=== PATIENT | female | born 1950 | race Native Hawaiian/Other Pacific Islander ===

== ENCOUNTER 2017-04-24 11:16 | Emergency (ER) | payer SELFPAY ==
[~2017-04-24] VITALS: Ht 147.3 cm; Wt 55.0 kg
[2017-04-24 11:21] VITALS: BP 237/98; PULSE 68; RESP 14; TEMP 98.4; O2SAT 99
[2017-04-24] MEDS ORDERED: CARV12.52 PO (11:35)
[2017-04-24] MEDS ORDERED: CELE1CAP8 PO (11:35)
[2017-04-24] MEDS ORDERED: EMPA1TAB24 PO (11:35)
[2017-04-24] MEDS ORDERED: LEVO75TA3 PO (11:35)
[2017-04-24] MEDS ORDERED: TEMA30CA PO (11:35)
[2017-04-24] MEDS ORDERED: MONT10TA4 PO (11:35)
--- NOTE | 2017-04-24 11:50 | PD ---
HPI Chief Complaint: Hypertension Time Seen by Provider: 11:49 Travel History International Travel<30 days: No Contact w/Intl Traveler<30days: No Traveled to known affect area: No History of Present Illness HPI 66-year-old female with PMH of HTN, DM, hypothyroid presents to the ED for evaluation of 1 week history of intermittent frontal headaches with accompanied photophobia, dizziness, nausea. The patient is Japanese and does not speak Indonesian. She requests that her fzbnusbh-fa-hgd at bedside act as her sign language interpreter. The patient states that she is currently asymptomatic. The patient denies chest pain, palpitations, shortness of breath, abdominal pain, nausea, vomiting, dysuria, facial droop, difficulties with speech, unilateral weakness. Her ujwjwfup-qy-hnn states that although the patient has been experiencing these symptoms for approximately one week she did not mention it until yesterday. Her ajfryhnb-qb-orc states that she began to monitor her rpdhxq-xm-fqe's blood pressures and noted that they were near 200/100 and spite of compliance with medications. The patient is followed by Dr. Ksenia Cooper. [facility] Past Medical History Arthritis: Yes Asthma: Yes Diabetes: Yes Patient Takes Glucophage: No Hypertension: Yes Thyroid Disease: Yes ?: Not Menopausal: Yes Social History Alcohol Use: No Tobacco Use: No Substance Use: No Allergies-Medications (Allergen,Severity, Reaction): Coded Allergies: No Known Allergies (Verified Allergy, Unknown, 04/24/17) Reported Meds & Prescriptions Reported Meds & Active Scripts Active Hydrochlorothiazide 25 Mg Tab 25 Mg PO BID Reported Celecoxib 200 Mg Cap 200 Mg PO DAILY Levothyroxine (Levothyroxine Sodium) 75 Mcg Tab 75 Mcg PO DAILY Montelukast (Montelukast Sodium) 10 Mg Tab 10 Mg PO HS Synjardy Xr (Empagliflozin-Metformin) 5-1,000 Mg Tab 1 Tab PO AC LUNCH Temazepam 30 Mg Cap 30 Mg PO HS PRN Carvedilol 12.5 Mg Tab 12.5 Mg PO BID Review of Systems Except as stated in HPI: all other systems reviewed are Neg Physical Exam Narrative GENERAL: Well-nourished, well-developed petite Japanese female in no acute distress. SKIN: Focused skin assessment warm/dry. HEAD: Normocephalic. EYES: No scleral icterus. No injection or drainage. PERRLA. EOMI. NECK: Supple, trachea midline. No JVD or lymphadenopathy. CARDIOVASCULAR: Regular rate and rhythm without murmurs, gallops, or rubs. RESPIRATORY: Breath sounds clear and equal bilaterally. No accessory muscle use. GASTROINTESTINAL: Abdomen soft, non-tender, nondistended. Active bowel sounds. MUSCULOSKELETAL: No cyanosis, or edema. Moves the extremities spontaneously. NEUROLOGICAL: Awake and alert. Cranial nerves II through XII intact. Motor and sensory grossly within normal limits. Five out of 5 muscle strength in all muscle groups. Normal speech. BACK: Nontender without obvious deformity. No CVA tenderness. Data Data Last Documented VS Vital Signs Date Time Temp Pulse Resp B/P (MAP) Pulse Ox O2 Delivery O2 Flow Rate FiO2 04/24/17 14:03 56 16 205/85 (125) 100 Room Air 04/24/17 11:21 98.4 Orders Orders Electrocardiogram (04/24/17 11:49) Complete Blood Count With Diff (04/24/17 11:49) Comprehensive Metabolic Panel (04/24/17 11:49) Ckmb (Isoenzyme) Profile (04/24/17 11:49) Troponin I (04/24/17 11:49) Act Partial Throm Time (Ptt) (04/24/17 11:49) Prothrombin Time / Inr (Pt) (04/24/17 11:49) Urinalysis - C+S If Indicated (04/24/17 11:49) Chest, Single Ap (04/24/17 11:49) Ct Brain W/O Iv Contrast(Rout) (04/24/17 11:49) Ecg Monitoring (04/24/17 11:49) Iv Access Insert/Monitor (04/24/17 11:49) Oximetry (04/24/17 11:49) Sodium Chloride 0.9% Flush (Ns Flush) (04/24/17 12:00) Blood Glucose (04/24/17 12:01) CKMB (04/24/17 12:00) CKMB% (04/24/17 12:00) Potassium, Serum (K) (04/24/17 13:31) Hydrochlorothiazide (Hydrodiuril) (04/24/17 13:45) Ed Discharge Order (04/24/17 14:47) Labs Laboratory Tests Test 04/24/17 12:00 04/24/17 12:29 04/24/17 14:00 White Blood Count 7.2 TH/MM3 Red Blood Count 5.42 MIL/MM3 Hemoglobin 14.7 GM/DL Hematocrit 45.1 % Mean Corpuscular Volume 83.3 FL Mean Corpuscular Hemoglobin 27.2 PG Mean Corpuscular Hemoglobin Concent 32.7 % Red Cell Distribution Width 14.5 % Platelet Count 157 TH/MM3 Mean Platelet Volume 9.0 FL Neutrophils (%) (Auto) 58.0 % Lymphocytes (%) (Auto) 30.4 % Monocytes (%) (Auto) 6.9 % Eosinophils (%) (Auto) 3.9 % Basophils (%) (Auto) 0.8 % Neutrophils # (Auto) 4.2 TH/MM3 Lymphocytes # (Auto) 2.2 TH/MM3 Monocytes # (Auto) 0.5 TH/MM3 Eosinophils # (Auto) 0.3 TH/MM3 Basophils # (Auto) 0.1 TH/MM3 CBC Comment DIFF FINAL Differential Comment Blood Urea Nitrogen 10 MG/DL Creatinine 0.57 MG/DL Random Glucose 79 MG/DL Total Protein 8.7 GM/DL Albumin 4.0 GM/DL Calcium Level 9.3 MG/DL Alkaline Phosphatase 86 U/L Aspartate Amino Transf (AST/SGOT) 36 U/L Alanine Aminotransferase (ALT/SGPT) 25 U/L Total Bilirubin 0.7 MG/DL Sodium Level 137 MEQ/L Potassium Level 5.4 MEQ/L 4.2 MEQ/L Chloride Level 106 MEQ/L Carbon Dioxide Level 24.9 MEQ/L Anion Gap 6 MEQ/L Estimat Glomerular Filtration Rate 105 ML/MIN Total Creatine Kinase 187 U/L Creatine Kinase MB 1.6 NG/ML Troponin I LESS THAN 0.02 NG/ML Prothrombin Time 10.5 SEC Prothromb Time International Ratio 1.0 RATIO Activated Partial Thromboplast Time 25.5 SEC Urine Color LIGHT-YELLOW Urine Turbidity CLEAR Urine pH 7.5 Urine Specific [place] 1.005 Urine Protein NEG mg/dL Urine Glucose (UA) 1000 mg/dL Urine Ketones NEG mg/dL Urine Occult Blood NEG Urine Nitrite NEG Urine Bilirubin NEG Urine Urobilinogen LESS THAN 2.0 MG/DL Urine Leukocyte Esterase MOD Urine RBC LESS THAN 1 /hpf Urine WBC 2 /hpf Urine Squamous Epithelial Cells 1 /hpf Urine Bacteria OCC /hpf Microscopic Urinalysis Comment CULT NOT INDICATED MDM Medical Decision Making Medical Screen Exam Complete: Yes Emergency Medical Condition: Yes Differential Diagnosis hypertension versus hypertensive urgency versus hyperglycemia versus ICH versus ACS versus other Narrative Course 66-year-old female with PMH of HTN, DM, hypothyroid presents to the ED for evaluation of 1 week history of intermittent frontal headaches with accompanied photophobia, dizziness, nausea. The patient is Japanese and does not speak Indonesian. She requests that her wfzefnin-tb-evg at bedside act as her sign language interpreter. The patient states that she is currently asymptomatic. The patient is followed by Dr. Ksenia Cooper. BP 237/98 on presentation. On physical exam this is a petit Japanese female in no acute distress. No focal neuro deficits. Chest CTA B. Abdomen soft and nontender. No lower extremity edema. EKG rate 68, sinus rhythm. DC interval 137, QRS 92, QTC 379 ms. Normal axis. No acute ST changes. Reviewed by Dr. Hatch. CXR: No acute disease per radiology read. Cardiac enzymes negative 1 INR: 1.1 UA: no culture indicated CBC & BMP Diagram 04/24/17 12:00 Total Protein 8.7 H, Albumin 4.0, Calcium Level 9.3, Alkaline Phosphatase 86, Aspartate Amino Transf (AST/SGOT) 36, Alanine Aminotransferase (ALT/SGPT) 25, Total Bilirubin 0.7 Potassium 4.2 on recheck. The patient was administered 25 mg HCTZ. BP trending downward. Shes is provided a prescription for HCTZ 25mg BID, instructed to follow up with her PCP. The patient and her daughter in law indicated understanding of the instructions and are agreeable to the care plan. The patient is table and discharged home. Diagnosis Primary Impression: Hypertension Qualified Codes: I10 - Essential (primary) hypertension Referrals: Primary Care Physician Patient Instructions: General Instructions, Hypertension (ED) Additional Instructions: Rest, hydrate. Resume at home medications as previously prescribed. Take the second dose of HCTZ with your evening medications. Follow-up with your primary care tomorrow as discussed. Return to the ED for worsening symptoms or any urgent or emergent medical condition. Med/Other Pt SpecificInfo: Prescription(s) given Scripts Hydrochlorothiazide (Hydrochlorothiazide) 25 Mg Tab 25 MG PO BID, #30 TAB Prov: Gee Hatch MD 04/24/17 Disposition: DISCHARGE HOME Condition: Stable Sarah Pettit Apr 24, 2017 11:50
[2017-04-24] MEDS ORDERED: SODIUM CHLORIDE 0.9% FLUSH 10 ML FLUSH IVF PRN (12:00)
--- NOTE | 2017-04-24 12:12 | RADRPT ---
EXAM DATE/TIME: 04/24/2017 12:03 [facility] COMPARISON: No previous studies available for comparison. INDICATIONS : Cephalgia, dizziness and nausea today. RADIATION DOSE: 34.71 CTDIvol (mGy) MEDICAL HISTORY : Hypertension. thyroid disease, diabetes SURGICAL HISTORY : None. ENCOUNTER: Initial ACUITY: 1 day PAIN SCALE: 8/10 LOCATION: Bilateral head TECHNIQUE: Multiple contiguous axial images were obtained of the head. Using automated exposure control and adj ustment of the mA and/or kV according to patient size, radiation dose was kept as low as reasonably a chievable to obtain optimal diagnostic quality images. DICOM format image data is available electro nically for review and comparison. FINDINGS: CEREBRUM: The ventricles and cortical sulci are widened. No evidence of midline shift, mass lesion, hemorrhage or acute infarction. No extra-axial fluid collections are seen. POSTERIOR FOSSA: The cerebellum and brainstem are intact. The 4th ventricle is midline. The cerebellopontine angle i s unremarkable. EXTRACRANIAL: The visualized portion of the orbits is intact. There is mild mucosal thickening at the maxillary sin uses. SKULL: The calvaria is intact. No evidence of skull fracture. CONCLUSION: No acute intracranial abnormality seen. Ky Betancourt MD on April 24, 2017 at 12:08 Board Certified Radiologist. This report was verified electronically.
[2017-04-24 12:33] LABS: AST (GOT) 36 U/L (15-37); BICARBONATE 24.9 MEQ/L (21.0-32.0); BLOOD UREA NITROGEN 10 MG/DL (7-18); CALCIUM 9.3 MG/DL (8.5-10.1); CHLORIDE 106 MEQ/L (98-107); CREATININE 0.57 MG/DL (0.50-1.00); GLOMERULAR FILTRATION RATE 105 ML/MIN (>89); GLUCOSE,RANDOM 79 MG/DL (74-106); SODIUM (NA) 137 MEQ/L (136-145)
[2017-04-24 12:36] LABS: ALKALINE PHOSPHATASE 86 U/L (45-117); ALT (GPT) 25 U/L (10-53); TOTAL BILIRUBIN ADULT 0.7 MG/DL (0.2-1.0); TOTAL PROTEIN 8.7 GM/DL (6.4-8.2); TROPONIN I LESS THAN 0.02 NG/ML (0.02-0.05)
[2017-04-24 12:37] VITALS: BP 213/137; PULSE 60; RESP 15; O2SAT 100
[2017-04-24 12:39] LABS: AUTOMATED NEUTROPHIL # 4.2 TH/MM3 (1.8-7.7); BASOPHIL # 0.1 TH/MM3 (0-0.2); BASOPHIL % 0.8 % (0.0-2.0); EOSINOPHIL # 0.3 TH/MM3 (0-0.4); EOSINOPHIL % 3.9 % (0.0-4.0); HEMATOCRIT 45.1 % (35.0-46.0); HEMOGLOBIN 14.7 GM/DL (11.6-15.3); LYMPH % 30.4 % (9.0-44.0); LYMPHOCYTE # 2.2 TH/MM3 (1.0-4.8); MEAN CELL VOLUME 83.3 FL (80.0-100.0); MEAN CORPUSCULAR HEMOGLOBIN 27.2 PG (27.0-34.0); MEAN CORPUSCULAR HGB CONC 32.7 % (32.0-36.0); MONO % 6.9 % (0.0-8.0); MONOCYTE # 0.5 TH/MM3 (0-0.9); PLATELET COUNT 157 TH/MM3 (150-450); RED BLOOD COUNT 5.42 MIL/MM3 (4.00-5.30); RED CELL DISTRIBUTION WIDTH 14.5 % (11.6-17.2); WHITE BLOOD COUNT 7.2 TH/MM3 (4.0-11.0)
--- NOTE | 2017-04-24 12:43 | RADRPT ---
EXAM DATE/TIME: 04/24/2017 12:08 [facility] COMPARISON: No previous studies available for comparison. INDICATIONS : High blood pressure. MEDICAL HISTORY : Hypertension. Diabetes, Hypertension. SURGICAL HISTORY : None. ENCOUNTER: Initial ACUITY: 1 day PAIN SCORE: 0/10 LOCATION: Bilateral chest FINDINGS: A single view of the chest demonstrates the lungs to be symmetrically aerated without evidence of mas s, infiltrate or effusion. The cardiomediastinal contours are unremarkable. Osseous structures are intact. CONCLUSION: No acute disease. Ky Betancourt MD on April 24, 2017 at 12:42 Board Certified Radiologist. This report was verified electronically.
[2017-04-24 12:52] LABS: BACTERIA, URINE OCC /hpf; BILIRUBIN, URINE NEG (NEG); BLOOD, URINE NEG (NEG); GLUCOSE,URINE 1000 mg/dL (NEG); KETONE, URINE NEG (NEG); NITRITE,URINE NEG (NEG); PH, URINE 7.5 (5.0-8.5); SQUAMOUS EPITHELIAL CELL URINE 1 /hpf (0-5); URINE COLOR LIGHT-YELLOW (YELLW/STRAW); URINE LEUKOCYTE ESTERASE MOD (NEG)
[2017-04-24 12:58] LABS: PROTHROMBIN TIME - PATIENT 10.5 SEC (9.8-11.6)
[2017-04-24] MEDS ORDERED: HYDR25TA5 PO (13:35)
[2017-04-24] MEDS ORDERED: HYDROCHLOROTHIAZIDE 25 MG TAB PO ONE (13:45)
[2017-04-24 14:03] VITALS: BP 205/85; PULSE 56; RESP 16; O2SAT 100
--- NOTE | 2017-04-25 15:27 | EKG ---
Date Performed: 04/24/2017 Time Performed: 11:34:40 PTAGE: 66 years EKG: Sinus rhythm WITH MARKED SINUS ARRHYTHMIA NONSPECIFIC T-WAVE ABNORMALITY CANNOT RULE OUT ISCHEMIA Clinical correl ation is recommended BORDERLINE ECG NO PREVIOUS TRACING DOCTOR: Yury Naidu Interpretating Date/Time 04/25/2017 15:27:13
== END 2017-04-24 15:28 | disposition home or self-care (01) ==
LOC: NEPC 11:16
DX: I10 Essential (primary) hypertension (principal); R94.31 Abnormal electrocardiogram [ECG] [EKG]; E03.9 Hypothyroidism, unspecified; E11.9 Type 2 diabetes mellitus without complications; J45.909 Unspecified asthma, uncomplicated
CPT/HCPCS: 70450; 71045; 80053; 81001; 82550; 82552; 84132; 84484; 85025; 85610; 85730; 93005

== ENCOUNTER 2017-10-25 23:05 | Inpatient (IN) ==
[2017-10-25] MEDS ORDERED: MethylPREDNISolone Sod Succinate Inj 125 MG/2 ML Vial IV.PUSH ONE (23:29)
--- NOTE | 2017-10-25 23:39 | ED ---
HPI General Chief complaint: Respiratory Symptoms Stated complaint: Diff breathing Time Seen by Provider: 10/25/17 23:29 Source: family Limitations: no limitations History of Present Illness HPI narrative: The patient is a 67 year old female who presents to the [facility] emergency department with a history of congestion, cough, subjective fever that began yesterday. Today the patient began to have symptoms of shortness of breath that it gradually worsened throughout the evening. The patient's daughter reports that yesterday she started back on Brio and albuterol as nebulizer treatments. She reports that she has been given this in the past when she had an upper respiratory infection. She last used these medicines 4-5 months ago. The patient denies having any chest pain. She denies any history of coronary artery disease or congestive heart failure. She reports that she has not been diagnosed with asthma or COPD in the past. She denies any prior history of DVT or PE. The patient arrives tachypneic with an O2 saturation of 74% on room air. The patient was initially placed on a nonrebreather mask and then switched over to BiPAP. Patient denies having any nausea, vomiting, or diarrhea. The patient denies having any new urinary review of systems otherwise, the patient denies having any neck pain, abdominal pain, or neurologic symptoms. Related Data Allergies Allergy/AdvReac Type Severity Reaction Status Date / Time No Known Allergies Allergy Unknown Uncoded 04/24/17 11:24 Review of Systems ROS: all other systems reviewed are negative (Except for that which was mentioned in the HPI.) Constitutional Denies fever(s) Eyes Denies change in vision ENT Denies headache(s) and Denies nasal congestion Cardiovascular Denies chest pain Respiratory Denies dyspnea Gastrointestinal Denies abdominal pain Genitourinary Denies difficulty voiding Musculoskeletal Denies myalgias Integumentary/Breasts Denies rash Neurologic Denies headache(s) Psychiatric Denies depression Endocrine Denies polyuria Hematologic/Lymphatic Denies easy bruising [facility] Medical History Medical History Allergic rhinitis (Acute) Diabetes (Acute) Hypertension (Acute) Hypothyroidism (Acute) Reactive airway disease (Acute) Surgical History Surgical History No pertinent past surgical history (Acute) Social History Social History Substance History: No History of Abuse Smoking Status: Never smoker How Often Do You Have a Drink Containing Alcohol: Never Recent Travel in [facility] within the Last 8 Weeks: No Recent Out of Country Travel within the Last 8 Weeks: No Exam Const General: cooperative and acute distress moderate and respiratory Nutritional Appearance: well nourished Orientation: alert, awake and oriented x3 HENMT Head: normocephalic and atraumatic Nose: no nasal discharge and no epistaxis Mouth: moist mucous membranes Throat: posterior oropharynx normal and uvula midline Eyes Sclera: normal sclerae Pupils: PERRL Neck Neck: no meningeal signs, trachea midline and no JVD Resp Effort & Inspection: respiratory distress, retractions, tachypneic and uses accessory muscles Auscultation: wheezes and other (Decreased breath sounds in bilateral lung bases. Poor air movement. The patient has conversational dyspnea. No rhonchi or crackles are audible initially.) Cardio Rate: regular rate Rhythm: regular rhythm Heart Sounds: no gallops, no murmurs and no rubs GI Inspection: non-distended Palpation: soft, no hepatosplenomegaly and nontender Auscultation: normal bowel sounds Back/Spine/Pelvis Back: no CVA tenderness Skin General: dry skin (warm) Neuro General: alert, awake and oriented x3 Cranial Nerves: other (Grossly nonfocal.) Speech: speech normal Motor: no movement abnormalities noted Extrem General: normal to inspection (No calf tenderness on palpation. 2+ pulses in all 4 extremities.), no clubbing, no cyanosis and no edema Psych Mood: congruent mood Affect: normal affect Judgment: judgment good Course Reevaluation(s) Reevaluation #1: The patient on reevaluation is improved. The patient is tolerating BiPAP well. The patient is saturating 94% on BiPAP. Consultations Consultation #1: The patient's case including history, pertinent physical examination findings, and laboratory studies were discussed with Dr. Lieberman It was agreed that the patient would be admitted to the [facility] hospitalist service. Time: 01:06 Initial Documented Vital Signs Pulse Rate 71 10/25/17 23:15 Respiratory Rate 21 10/25/17 23:15 Pulse Oximetry 97 10/25/17 23:15 Last Documented Vital Signs Temperature 99.5 F 10/25/17 23:18 Pulse Rate 70 10/26/17 00:58 Respiratory Rate 21 10/25/17 23:45 Blood Pressure 191/81 H 10/26/17 00:58 Pulse Oximetry 98 10/26/17 00:58 Medical Decision Making MDM Narrative Medical decision making narrative: During the course of the patient's emergency department visit, the patient's history, examination, and differential diagnosis were reviewed with the patient. The patient was placed on a nuclear monitoring technician with oximetry and frequent blood pressure monitoring. The patient had IV access obtained and blood work sent for analysis. Diagnostic evaluation was started regarding the patient's shortness of breath and hypoxemia on room air. The patient was initially provided DuoNeb x3, Solu-Medrol 125 mg IV. Blood cultures x2 were collected. The patient was started on Rocephin 1 g IV, Zithromax 500 IV. The patient's diagnostic evaluation is remarkable for a white count of 11, platelets of 247, neutrophils 74.4, hemoglobin within normal limits at 14.3, PT PTT within normal limits, d-dimer is 0.47 decreasing likelihood of pulmonary embolism. Chemistry is remarkable for a troponin I of less than 0.02, total protein 9.6, glucose 127, GFR of 62, BNP is 110. Blood gas on BiPAP at 12/6, 50 % reveals a pH is 7.141, PO2 of 63, PCO2 42, bicarb 26. The patient's results were discussed with the patient, including the plan of care. I explained that further testing and/ or monitoring is indicated based on the patient's history, examination, and/ or laboratory findings. Therefore, I recommended admission for additional evaluation. The patient expressed understanding and was agreeable with this plan. The patient was admitted to the hospital in guarded condition and sent to a bed under the care of the [facility] hospitalist service. Medical Screen Exam Complete: Yes Emergency Medical Condition: Yes Differential Diagnosis Differential Diagnosis: Pulmonary embolism, versus congestive heart failure, versus reactive airway exacerbation, versus pneumonia, versus pneumothorax Medical Records Medical records reviewed: Yes I reviewed the patient's medical records. Lab Data Lab results reviewed: Yes I reviewed the patient's lab results. Result diagrams: 10/25/17 23:25 10/25/17 23:25 Lab Results 10/25/17 10/25/17 10/25/17 Range/Units 23:25 23:25 23:25 WBC 11.0 (4.0-11.0) th/mm3 RBC 5.19 (4.00-5.30) mil/mm3 Hgb 14.3 (11.6-15.3) gm/dL Hct 42.5 (35.0-46.0) % MCV 81.9 (80.0-100.0) fL MCH 27.6 (27.0-34.0) pg MCHC 33.6 (32.0-36.0) % RDW 14.3 (11.6-17.2) % Plt Count 247 (150-450) th/mm3 MPV 9.4 (7.0-11.0) fL Neut % (Auto) 74.4 H (16.0-70.0) % Lymph % (Auto) 15.6 (9.0-44.0) % [place] % (Auto) 6.9 (0.0-8.0) % Eos % (Auto) 2.7 (0.0-4.0) % Baso % (Auto) 0.4 (0.0-2.0) % Neut # (Auto) 8.2 H (1.8-7.7) th/mm3 Lymph # (Auto) 1.7 (1.0-4.8) th/mm3 [place] # (Auto) 0.8 (0.0-0.9) th/mm3 Eos # (Auto) 0.3 (0.0-0.4) th/mm3 Baso # (Auto) 0.0 (0.0-0.2) th/mm3 WBC Differential . Differential Comment Auto diff final PT (9.8-11.6) sec INR Ratio APTT (24.3-30.1) sec D-Dimer Quant (PE/DVT) (0.00-0.50) mg/L FEU Puncture Site Patient Temperature O2 Saturation (90-100) % ABG pH (7.380-7.420) ABG pCO2 (38-42) mmHg ABG pO2 (61-120) mmHg ABG HCO3 (22-26) mmol/L ABG O2 Content (12.0-20.0) Vol % ABG Base Excess (-2-2) mmol/L ABG Methemoglobin (0-2) % [place] Test Hemoglobin (12.0-16.0) G/DL Carboxyhemoglobin (0-4) % O2 Delivery Device Vent Setting Inspired O2 % Critical Value Sodium 140 (136-145) meq/L Potassium 3.8 (3.5-5.1) meq/L Chloride 104 (98-107) meq/L Carbon Dioxide 25.7 (21.0-32.0) meq/L Anion Gap 10 (5-15) meq/L BUN 14 (7-18) mg/dL Creatinine 0.90 (0.50-1.00) mg/dL Estimated GFR 62 L (>89) mL/min Random Glucose 127 H (74-106) mg/dL Calcium 8.9 (8.5-10.1) mg/dL Magnesium 2.1 (1.5-2.5) mg/dL Total Bilirubin 0.4 (0.2-1.0) mg/dL AST 27 (15-37) U/L ALT 32 (10-53) U/L Alkaline Phosphatase 93 (45-117) U/L Total Creatine Kinase 150 (26-192) U/L CK-MB (CK-2) 1.7 (0.5-3.6) ng/mL Troponin I Less than 0.02 L (0.02-0.05) ng/mL B-Natriuretic Peptide 110 H (0-100) pg/mL Total Protein 9.6 H (6.4-8.2) g/dL Albumin 4.7 (3.4-5.0) g/dL Lipase 201 (73-393) U/L 10/25/17 10/26/17 Range/Units 23:25 00:30 WBC (4.0-11.0) th/mm3 RBC (4.00-5.30) mil/mm3 Hgb (11.6-15.3) gm/dL Hct (35.0-46.0) % MCV (80.0-100.0) fL MCH (27.0-34.0) pg MCHC (32.0-36.0) % RDW (11.6-17.2) % Plt Count (150-450) th/mm3 MPV (7.0-11.0) fL Neut % (Auto) (16.0-70.0) % Lymph % (Auto) (9.0-44.0) % [place] % (Auto) (0.0-8.0) % Eos % (Auto) (0.0-4.0) % Baso % (Auto) (0.0-2.0) % Neut # (Auto) (1.8-7.7) th/mm3 Lymph # (Auto) (1.0-4.8) th/mm3 [place] # (Auto) (0.0-0.9) th/mm3 Eos # (Auto) (0.0-0.4) th/mm3 Baso # (Auto) (0.0-0.2) th/mm3 WBC Differential Differential Comment PT 10.0 (9.8-11.6) sec INR 1.0 Ratio APTT 25.9 (24.3-30.1) sec D-Dimer Quant (PE/DVT) 0.47 (0.00-0.50) mg/L FEU Puncture Site Right radial Patient Temperature 98.6 O2 Saturation 90 (90-100) % ABG pH 7.41 (7.380-7.420) ABG pCO2 42 (38-42) mmHg ABG pO2 63 (61-120) mmHg ABG HCO3 26 (22-26) mmol/L ABG O2 Content 15.8 (12.0-20.0) Vol % ABG Base Excess 1.8 (-2-2) mmol/L ABG Methemoglobin 0.6 (0-2) % [place] Test Present Hemoglobin 12.4 (12.0-16.0) G/DL Carboxyhemoglobin 0.8 (0-4) % O2 Delivery Device Bipap Vent Setting Ipap=12 epap=6 Inspired O2 50 % Critical Value No Sodium (136-145) meq/L Potassium (3.5-5.1) meq/L Chloride (98-107) meq/L Carbon Dioxide (21.0-32.0) meq/L Anion Gap (5-15) meq/L BUN (7-18) mg/dL Creatinine (0.50-1.00) mg/dL Estimated GFR (>89) mL/min Random Glucose (74-106) mg/dL Calcium (8.5-10.1) mg/dL Magnesium (1.5-2.5) mg/dL Total Bilirubin (0.2-1.0) mg/dL AST (15-37) U/L ALT (10-53) U/L Alkaline Phosphatase (45-117) U/L Total Creatine Kinase (26-192) U/L CK-MB (CK-2) (0.5-3.6) ng/mL Troponin I (0.02-0.05) ng/mL B-Natriuretic Peptide (0-100) pg/mL Total Protein (6.4-8.2) g/dL Albumin (3.4-5.0) g/dL Lipase (73-393) U/L Imaging Data Radiologist's impression: Chest X-Ray 10/25/17 23:29 CONCLUSION: No evidence of acute cardiopulmonary disease. ECG Data Attestation: I personally reviewed and interpreted this ECG as follows: Interpretation: The patient had an EKG done on arrival. The patient's EKG shows a sinus rhythm heart rate of 82, QRS duration is 90 ms, QTC [address] segment elevation, nonspecific ST-T wave abnormalities are noted, wavy baseline noted which could be infecting interpretation. Discharge Plan Discharge Disposition Patient Disposition: 30 Still Patient Discharge Details Diagnosis: Acute respiratory failure with hypoxemia, Exacerbation of reactive airway disease Physicians Team ED Provider: Malka Ghotra Primary Care Provider: Nidhi Cooper Status ED Status: With Doctor
[2017-10-25 23:54] LABS: Baso % (Auto) 0.4 % (0.0-2.0); Eos # (Auto) 0.3 th/mm3 (0.0-0.4); Eos % (Auto) 2.7 % (0.0-4.0); Hematocrit 42.5 % (35.0-46.0); Hemoglobin 14.3 gm/dL (11.6-15.3); Lymph # (Auto) 1.7 th/mm3 (1.0-4.8); Lymph % (Auto) 15.6 % (9.0-44.0); Mean Corpuscular HGB Conc 33.6 % (32.0-36.0); Mean Corpuscular Hemoglobin 27.6 pg (27.0-34.0); Mean Corpuscular Volume 81.9 fL (80.0-100.0); Mean Platelet Volume 9.4 fL (7.0-11.0); Mono # (Auto) 0.8 th/mm3 (0.0-0.9); Mono % (Auto) 6.9 % (0.0-8.0); Neut # (Auto) 8.2 th/mm3 (1.8-7.7); Neut % (Auto) 74.4 % (16.0-70.0); Platelet Count 247 th/mm3 (150-450); Red Blood Count 5.19 mil/mm3 (4.00-5.30); Red Cell Distribution Width 14.3 % (11.6-17.2)
--- NOTE | 2017-10-25 23:58 | XR ---
EXAM DATE: 10/25/2017 11:45 PM EDT AGE/SEX: 67 years / Female INDICATIONS: Shortness of breath. CLINICAL DATA: This is the patient's initial encounter. Patient reports that signs and symptoms have been present for 1 day and indicates a pain score of 0/10. MEDICAL/SURGICAL HISTORY: Hypertension. Diabetes. None. COMPARISON: [facility] [place], CHEST SINGLE AP, 04/24/2017. . FINDINGS: A single AP view of the chest demonstrates the lungs to be symmetrically aerated without evidence of mass, infiltrate or effusion. The cardiomediastinal contours are unremarkable. Osseous structures a re intact. CONCLUSION: No evidence of acute cardiopulmonary disease. Electronically signed by: Ky Lima MD 10/25/2017 11:56 PM EDT
[2017-10-26 00:10] LABS: Activated Partial Thrombo Time 25.9 sec (24.3-30.1)
[2017-10-26 00:14] LABS: D-Dimer 0.47 mg/L FEU (0.00-0.50)
[2017-10-26 00:24] LABS: Alanine Aminotransferase 32 U/L (10-53); Alkaline Phosphatase 93 U/L (45-117); Creatine Kinase 150 U/L (26-192); Total Protein 9.6 g/dL (6.4-8.2)
[2017-10-26 00:25] LABS: Albumin 4.7 g/dL (3.4-5.0); Anion Gap 10 meq/L (5-15); Aspartate Aminotransferase 27 U/L (15-37); Blood Urea Nitrogen 14 mg/dL (7-18); Calcium 8.9 mg/dL (8.5-10.1); Carbon Dioxide 25.7 meq/L (21.0-32.0); Chloride 104 meq/L (98-107); Glomerular Filtration Rate 62 mL/min (>89); Glucose,Random 127 mg/dL (74-106); Lipase 201 U/L (73-393); Magnesium 2.1 mg/dL (1.5-2.5); Potassium 3.8 meq/L (3.5-5.1); Sodium 140 meq/L (136-145)
[2017-10-26 00:36] LABS: Creatine Kinase MB 1.7 ng/mL (0.5-3.6)
[2017-10-26] MEDS ORDERED: Azithromycin Inj 500 MG in Sodium Chlor 0.9% Inj 250 ML IV.SIG ONE (00:43)
[2017-10-26 00:46] LABS: ABG Base Excess 1.8 mmol/L (-2-2); ABG PCO2 42 mmHg (38-42); ABG PO2 63 mmHg (61-120)
[2017-10-26] MEDS ORDERED: Bisacodyl 10 MG Supp RECTAL PRN (02:24)
[2017-10-26] MEDS ORDERED: MethylPREDNISolone Sod Succinate Inj 125 MG/2 ML Vial IV.PUSH SCH (03:00)
[2017-10-26] MEDS: Enoxaparin Inj 40 MG/0.4 ML Syringe SQ SCH (03:29)
[2017-10-26 05:31] LABS: ABG Base Excess 0.2 mmol/L (-2-2); ABG PCO2 43 mmHg (38-42); ABG PO2 69 mmHG (61-120)
[2017-10-26] MEDS: MethylPREDNISolone Sod Succinate Inj 125 MG/2 ML Vial IV.PUSH SCH ×3 (05:40→17:30)
[2017-10-26] MEDS: Senna/Docusate Sodium 8.6/50 MG Tablet PO SCH ×2 (08:45→20:08)
[2017-10-26] MEDS: levoFLOXacin 750 MG Tablet PO SCH (08:45)
--- NOTE | 2017-10-26 09:07 | P.HP ---
<Pamela Martin W - Last Filed: 10/26/17 17:41> History of Present Illness Primary Care Physician: Nidhi Cooper Chief Complaint: Shortness of breath, cough and congestion times 1 day History of Present Illness: This a 67-year-old female patient with a past medical history which includes diabetes mellitus type 2, hypothyroidism, hyperlipidemia, benign hypertension, asthma, seasonal allergies and postmenopausal osteoporosis. Patient presented to the ER last night due to congestion, cough, subjective fever that began . Patient reports that she began to have symptoms of shortness of breath that gradually worsened throughout the evening. The patient's daughter reports that yesterday she started back on Brio and albuterol as nebulizer treatments. She reports that she has been given this in the past when she had an upper respiratory infection. She last used these medicines 4-5 months ago. Patient lives with her son daughter- in -law and two grandchildren. Patient's grandson recently has an URI. Per ER documentation the patient was tachypneic with an O2 saturation of 74% on room air when she arrived to the ER last night. The patient was initially placed on a nonrebreather mask and then switched over to BiPAP. Patient denies having any chest pain, nausea, vomiting, diarrhea, constipation or chills. Patient also did denies recent travel, prolonged sedentary periods or lower extremity edema. Chest X-Ray 10/25/17 23:29 reviewed and reveals No evidence of acute cardiopulmonary disease. Past medical history Diabetes mellitus type 2 Hypothyroidism Benign hypertension Hyperlipidemia Asthma Seasonal allergies Postmenopausal osteoporosis Past surgical history Patient denies prior surgical intervention. Social history Patient denies EtOH use tobacco use or illicit drug use Family medical history reviewed and noncontributory - Diagnosis (1) Acute respiratory failure with hypoxemia (2) Exacerbation of reactive airway disease Inpatient Certification: I certify that the inpatient services were ordered in accordance with Medicare regulations governing the order. This includes certification that hospital inpatient services are reasonable and necessary and in the case of services not specified as inpatient-only under 42 CFR 419.22(n), that they are appropriately provided as inpatient services in accordance to with the 2-midnight benchmark under 43 CFR 412.3(e) Estimated Total Length of Stay (Days): 3 Plans for Post Hospital Care: Not yet determined Review of Systems All other systems reviewed negative except as stated in HPI [facility] - History History Provided By: Family Member - Medical History Medical History: Medical History (Last Updated 10/25/17 @ 23:36 by Malka Ghotra MD) Allergic rhinitis Diabetes Hypertension Hypothyroidism Reactive airway disease - Surgical History Surgical History: Surgical History (Last Updated 10/25/17 @ 23:24 by Jewel Marshall Jr, RN) No pertinent past surgical history - Tobacco History Second Hand Smoke Exposure: No Smoking Status: Never smoker - Alcohol History How Often Do You Have a Drink Containing Alcohol: Never - Substance Use History Substance History: No History of Abuse - Travel History Recent Travel in the [place] Within the Last 8 Weeks: No Recent Travel Out of the Country Within the Last 8 Weeks: No - Immunization History Tetanus Immunization: Unable to Assess Hx Influenza Vaccine This Season: Unable to Assess Medications and Allergies Allergies Allergy/AdvReac Type Severity Reaction Status Date / Time No Known Allergies Allergy Unknown Uncoded 04/24/17 11:24 Home Medications Medication Instructions Recorded Confirmed Type aspirin [Aspirin Low Dose] 81 mg PO DAILY 10/26/17 10/26/17 History atorvastatin 10 mg PO DAILY 10/26/17 10/26/17 History carvedilol 12.5 mg PO BID 10/26/17 10/26/17 History celecoxib 200 mg PO DAILY 10/26/17 10/26/17 History clonazepam 1 mg PO DAILY 10/26/17 10/26/17 History diltiazem HCl 180 mg PO DAILY 10/26/17 10/26/17 History empagliflozin-metformin [Synjardy] 1 tab PO BID 10/26/17 10/26/17 History fluticasone-vilanterol [Breo 10/26/17 History Ellipta] hydrochlorothiazide 25 mg PO QAM 10/26/17 10/26/17 History levothyroxine 75 mcg PO DAILY 10/26/17 10/26/17 History montelukast 10 mg PO QPM 10/26/17 10/26/17 History Active Medications: Active Medications Al Hydroxide/Mg Hydroxide (Milk Of Magnjocelin Liq) 30 ml PO Q12H PRN PRN Reason: Mild Constipation Albuterol (Duoneb Neb (Nakia)) 1 ampul NEB Q6HR NEB [place] Last Admin: 10/26/17 03:37 Dose: 1 ampul Bisacodyl (Dulcolax Supp) 10 mg RECTAL DAILY PRN PRN Reason: SEVERE CONSITIPATION Chlorhexidine Gluconate (Chlorhexidine 2% Cloth) 3 pack TOPICAL DAILY@0400 [facility] Stop: 11/01/17 03:59 Chlorhexidine Gluconate (Chlorhexidine 2% Cloth) 3 pack TOPICAL DAILY@0400 PRN PRN Reason: Extra cloth needed Stop: 11/01/17 03:59 Enoxaparin Sodium (Lovenox Inj) 40 mg SQ Q24H [facility] Last Admin: 10/26/17 03:29 Dose: 40 mg Lactulose (Lactulose Liq) 30 ml PO DAILY PRN PRN Reason: SEVERE CONSITIPATION Levofloxacin (Levaquin) 750 mg PO DAILY [facility] Last Admin: 10/26/17 08:45 Dose: 750 mg Methylprednisolone Sodium Succinate (Solumedrol Inj) 60 mg IV.PUSH Q6H [facility] Last Admin: 10/26/17 05:40 Dose: 60 mg Ondansetron HCl (Zofran Inj) 4 mg IV.PUSH Q6H PRN PRN Reason: NAUSEA OR VOMITING Senna/Docusate Sodium (Pamela-Colace) 1 tab PO BID [facility] Last Admin: 10/26/17 08:45 Dose: 1 tab Sennosides (Senokot) 17.2 mg PO Q12H PRN PRN Reason: Moderate Constipation Sodium Chloride (Ns Flush) 2 ml IV.FLUSH PRN PRN PRN Reason: FLUSH AFTER USING IV ACCESS Sodium Chloride (Ns Flush) 2 ml IV.FLUSH BID [facility] Last Admin: 10/26/17 08:45 Dose: 2 ml Exam Vital signs: Vital Signs 10/25/17 23:15 10/25/17 23:18 10/25/17 23:29 Temperature 99.5 F Pulse Rate 71 77 82 Respiratory Rate 21 32 H Blood Pressure 223/95 H Pulse Oximetry 97 78 L 10/25/17 23:30 10/25/17 23:45 10/26/17 00:01 Temperature Pulse Rate 72 71 72 Respiratory Rate 24 21 Blood Pressure 203/85 H Pulse Oximetry 100 10/26/17 00:30 10/26/17 00:58 10/26/17 01:27 Temperature Pulse Rate 71 70 68 Respiratory Rate 30 H Blood Pressure 196/83 H 191/81 H 177/76 H Pulse Oximetry 100 98 96 10/26/17 02:10 10/26/17 02:13 10/26/17 02:50 Temperature Pulse Rate 70 Respiratory Rate 20 Blood Pressure 151/70 H Pulse Oximetry 97 97 94 L 10/26/17 03:15 10/26/17 03:16 10/26/17 03:34 Temperature Pulse Rate 68 68 Respiratory Rate 28 H 20 Blood Pressure 157/73 H Pulse Oximetry 95 99 10/26/17 03:38 10/26/17 04:00 10/26/17 04:32 Temperature 97.9 F Pulse Rate 67 65 Respiratory Rate 28 H 22 Blood Pressure 197/77 H Pulse Oximetry 95 98 10/26/17 04:33 10/26/17 05:24 10/26/17 06:00 Temperature Pulse Rate 62 56 L Respiratory Rate 26 H 21 Blood Pressure Pulse Oximetry 95 96 97 10/26/17 06:01 Temperature Pulse Rate 55 L Respiratory Rate 22 Blood Pressure 145/63 H Pulse Oximetry 98 Intake & Output 10/25/17 10/26/17 10/26/17 18:59 06:59 18:59 Intake Total 350 / 350 Output Total 0 / 0 Balance 350 / 350 Weight 53.977 kg Intake: IV 350 / 350 Azithromycin Inj 500 MG In NS 250 / 250 Inj 250 ML @ 250 mls/hr IV.SIG ONCE ONE Rx#:[id number] Rocephin Inj 1,000 MG In NS Inj 100 / 100 100 ML @ 200 mls/hr IV.SIG ONCE ONE Rx#:[id number] Oral 0 / 0 Output: Urine 0 / 0 Other: # Bowel Movements 0 Weight On Admission 54 kg Narrative: GENERAL: This is a well-nourished, well-developed patient, in no apparent distress. CARDIOVASCULAR: Regular rate and rhythm RESPIRATORY: GASTROINTESTINAL: Abdomen soft, non-tender, nondistended. Normal active bowel sounds MUSCULOSKELETAL: Extremities without clubbing, cyanosis, or edema. NEURO: Alert & Oriented x4 to person, place, time, situation. Moves all ext x4 Results - Labs CBC & Chem 7: 10/25/17 23:25 10/25/17 23:25 Labs: Laboratory Results - last 24 hr 10/25/17 10/25/17 10/25/17 23:25 23:25 23:25 WBC 11.0 RBC 5.19 Hgb 14.3 Hct 42.5 MCV 81.9 MCH 27.6 MCHC 33.6 RDW 14.3 Plt Count 247 MPV 9.4 Neut % (Auto) 74.4 H Lymph % (Auto) 15.6 [place] % (Auto) 6.9 Eos % (Auto) 2.7 Baso % (Auto) 0.4 Neut # (Auto) 8.2 H Lymph # (Auto) 1.7 [place] # (Auto) 0.8 Eos # (Auto) 0.3 Baso # (Auto) 0.0 WBC Differential . Differential Comment Auto diff final PT INR APTT D-Dimer Quant (PE/DVT) Puncture Site Patient Temperature O2 Saturation ABG pH ABG pCO2 ABG pO2 ABG HCO3 ABG O2 Content ABG Base Excess ABG Methemoglobin [place] Test Hemoglobin Carboxyhemoglobin O2 Delivery Device Vent Setting Inspired O2 Critical Value Sodium 140 Potassium 3.8 Chloride 104 Carbon Dioxide 25.7 Anion Gap 10 BUN 14 Creatinine 0.90 Estimated GFR 62 L Random Glucose 127 H Calcium 8.9 Magnesium 2.1 Total Bilirubin 0.4 AST 27 ALT 32 Alkaline Phosphatase 93 Total Creatine Kinase 150 CK-MB (CK-2) 1.7 Troponin I Less than 0.02 L B-Natriuretic Peptide 110 H Total Protein 9.6 H Albumin 4.7 Lipase 201 Nasal Screen MRSA (PCR) 10/25/17 10/26/17 10/26/17 23:25 00:30 04:00 WBC RBC Hgb Hct MCV MCH MCHC RDW Plt Count MPV Neut % (Auto) Lymph % (Auto) [place] % (Auto) Eos % (Auto) Baso % (Auto) Neut # (Auto) Lymph # (Auto) [place] # (Auto) Eos # (Auto) Baso # (Auto) WBC Differential Differential Comment PT 10.0 INR 1.0 APTT 25.9 D-Dimer Quant (PE/DVT) 0.47 Puncture Site Right radial Patient Temperature 98.6 O2 Saturation 90 ABG pH 7.41 ABG pCO2 42 ABG pO2 63 ABG HCO3 26 ABG O2 Content 15.8 ABG Base Excess 1.8 ABG Methemoglobin 0.6 [place] Test Present Hemoglobin 12.4 Carboxyhemoglobin 0.8 O2 Delivery Device Bipap Vent Setting Ipap=12 epap=6 Inspired O2 50 Critical Value No Sodium Potassium Chloride Carbon Dioxide Anion Gap BUN Creatinine Estimated GFR Random Glucose Calcium Magnesium Total Bilirubin AST ALT Alkaline Phosphatase Total Creatine Kinase CK-MB (CK-2) Troponin I B-Natriuretic Peptide Total Protein Albumin Lipase Nasal Screen MRSA (PCR) Not detected 10/26/17 05:17 WBC RBC Hgb Hct MCV MCH MCHC RDW Plt Count MPV Neut % (Auto) Lymph % (Auto) Aiken % (Auto) Eos % (Auto) Baso % (Auto) Neut # (Auto) Lymph # (Auto) Aiken # (Auto) Eos # (Auto) Baso # (Auto) WBC Differential Differential Comment PT INR APTT D-Dimer Quant (PE/DVT) Puncture Site Right radial Patient Temperature 98.6 O2 Saturation 91 ABG pH 7.38 ABG pCO2 43 H ABG pO2 69 ABG HCO3 25 ABG O2 Content 15.8 ABG Base Excess 0.2 ABG Methemoglobin 1.6 [place] Test Present Hemoglobin 12.3 Carboxyhemoglobin 0.5 O2 Delivery Device Bipap Vent Setting [id number] Inspired O2 40 Critical Value No Sodium Potassium Chloride Carbon Dioxide Anion Gap BUN Creatinine Estimated GFR Random Glucose Calcium Magnesium Total Bilirubin AST ALT Alkaline Phosphatase Total Creatine Kinase CK-MB (CK-2) Troponin I B-Natriuretic Peptide Total Protein Albumin Lipase Nasal Screen MRSA (PCR) - Imaging Impressions Chest X-Ray 10/25/17 23:29 CONCLUSION: No evidence of acute cardiopulmonary disease. Caprini VTE Risk Assessment Caprini VTE Risk Assessment: No/Low Risk (score <= 1) Caprini Risk Assessment Model: Point Value = 1 Point Value = 2 Point Value = 3 Point Value = 5 Age 41-60 Minor surgery BMI > 25 kg/m2 Swollen legs Varicose veins or History of unexplained or recurrent spontaneous Oral contraceptives or hormone replacement Sepsis (< 1 month) Serious lung disease, including pneumonia (< 1 month) Abnormal pulmonary function Acute myocardial infarction Congestive heart failure (< 1 month) History of inflammatory bowel disease Medical patient at bed rest Age 61-74 Arthroscopic surgery Major open surgery (> 45 min) Laparoscopic surgery (> 45 min) Malignancy Confined to bed (> 72 hours) Immobilizing plaster cast Central venous access Age >= 75 History of VTE Family history of VTE Factor V Leiden Prothrombin [id number] Lupus anticoagulant Anticardiolipin antibodies Elevated serum homocysteine Heparin-induced thrombocytopenia Other congenital or acquired thrombophilia Stroke (< 1 month) Elective arthroplasty Hip, pelvis, or leg fracture Acute spinal cord injury (< 1 month) Prophylaxis Regimen: Total Risk Factor Score Risk Level Prophylaxis Regimen 0-1 Low Early ambulation 2 Moderate Order ONE of the following: *Sequential Compression Device (SCD) *Heparin 5000 units SQ BID 3-4 Higher Order ONE of the following medications: *Heparin 5000 units SQ TID *Enoxaparin/Lovenox 40 mg SQ daily (WT < 150 kg, CrCl > 30 mL/min) *Enoxaparin/Lovenox 30 mg SQ daily (WT < 150 kg, CrCl > 10-29 mL/min) *Enoxaparin/Lovenox 30 mg SQ BID (WT < 150 kg, CrCl > 30 mL/min) AND/OR *Sequential Compression Device (SCD) 5 or more Highest Order ONE of the following medications: *Heparin 5000 units SQ TID (Preferred with Epidurals) *Enoxaparin/Lovenox 40 mg SQ daily (WT < 150 kg, CrCl > 30 mL/min) *Enoxaparin/Lovenox 30 mg SQ daily (WT < 150 kg, CrCl > 10-29 mL/min) *Enoxaparin/Lovenox 30 mg SQ BID (WT < 150 kg, CrCl > 30 mL/min) AND *Sequential Compression Device (SCD) Assessment and Plan - Assessment (1) Acute respiratory failure with hypoxemia Code(s): J96.01 - Acute respiratory failure with hypoxia Status: Acute Plan: This a 67-year-old female patient with a past medical history which includes diabetes mellitus type 2, hypothyroidism, hyperlipidemia, benign hypertension, asthma, seasonal allergies and postmenopausal osteoporosis. Patient presented to the ER last night due to congestion, cough, subjective fever that began . Patient reports that she began to have symptoms of shortness of breath that gradually worsened throughout the evening. Acute respiratory failure with hypoxia Exacerbation of reactive airway disease Per ER documentation the patient was tachypneic with an O2 saturation of 74% on room air when she arrived to the ER last night. The patient was initially placed on a nonrebreather mask and then switched over to BiPAP. Chest X-Ray 10/25/17 23:29 reviewed and reveals No evidence of acute cardiopulmonary disease. D-dimer 0.47 Duo nebs every 4 hours and as needed Patient given Solu-Medrol 125 mg IV emergency department then started on Solu- Medrol 60 mg IV every 6 hours Patient started on azithromycin and Rocephin IV in the emergency department Patient switched to Levaquin 750 mg p.o. daily we will continue Continue patient's home montelukast 10 mg p.o. every afternoon Continue patient's home Brio Ellipta 1 puff daily Consult placed to pulmonology Diabetes mellitus type 2 Patient takes Synjardy at home will hold hold at this time Diabetic diet Accu-Cheks AC at bedtime with sliding scale insulin coverage Hypothyroidism Continue patient's home levothyroxine 75 mcg daily Benign hypertension Continue patient's home hydrochlorothiazide 25 mg p.o. daily and diltiazem Hyperlipidemia Continue patient's home atorvastatin 10 mg p.o. daily 1630 Received call from RN that patient's EKG was abnormal EKG reviewed by Dr. Simms and myself revealed SR with inverted T waves in leads V1-V5 similar to EKG on admission in the ER patient denies chest pain will trend serial EKG and troponin troponin in the ER < 0.02 continuous telemetry monitoring DVT prophylaxis with Lovenox (2) Exacerbation of reactive airway disease Code(s): J45.901 - Unspecified asthma with (acute) exacerbation Status: Acute <Slim Simms - Last Filed: 10/27/17 11:56> History of Present Illness Primary Care Physician: Nidhi Cooper - Diagnosis (1) Acute respiratory failure with hypoxemia (2) Exacerbation of reactive airway disease Inpatient Certification: I certify that the inpatient services were ordered in accordance with Medicare regulations governing the order. This includes certification that hospital inpatient services are reasonable and necessary and in the case of services not specified as inpatient-only under 42 CFR 419.22(n), that they are appropriately provided as inpatient services in accordance to with the 2-midnight benchmark under 43 CFR 412.3(e) [facility] - Medical History Medical History: Medical History (Last Updated 10/25/17 @ 23:36 by Malka Ghotra MD) Allergic rhinitis Diabetes Hypertension Hypothyroidism Reactive airway disease - Surgical History Surgical History: Surgical History (Last Updated 10/25/17 @ 23:24 by Jewel Marshall Jr, RN) No pertinent past surgical history Medications and Allergies Active Medications: Active Medications Al Hydroxide/Mg Hydroxide (Milk Of Magnjocelin Liq) 30 ml PO Q12H PRN PRN Reason: Mild Constipation Albuterol (Duoneb Neb (Nakia)) 1 ampul NEB Q4HR NEB [facility] Last Admin: 10/27/17 08:28 Dose: 1 ampul Albuterol (Duoneb Neb (Prn)) 1 ampul NEB Q2HR NEB PRN PRN Reason: SHORTNESS OF BREATH/WHEEZING Aspirin (Ecotrin) 81 mg PO DAILY [facility] Last Admin: 10/27/17 08:24 Dose: 81 mg Atorvastatin Calcium (Lipitor) 10 mg PO DAILY [facility] Last Admin: 10/27/17 08:24 Dose: 10 mg Bisacodyl (Dulcolax Supp) 10 mg RECTAL DAILY PRN PRN Reason: SEVERE CONSITIPATION Celecoxib (Celebrex) 200 mg PO DAILY [facility] Last Admin: 10/27/17 08:25 Dose: 200 mg Chlorhexidine Gluconate (Chlorhexidine 2% Cloth) 3 pack TOPICAL DAILY@0400 [facility] Stop: 11/01/17 03:59 Last Admin: 10/27/17 04:32 Dose: 3 pack Chlorhexidine Gluconate (Chlorhexidine 2% Cloth) 3 pack TOPICAL DAILY@0400 PRN PRN Reason: Extra cloth needed Stop: 11/01/17 03:59 Clonidine HCl (Catapres) 0.1 mg PO Q6H PRN PRN Reason: SBP>160, DBP>90 Last Admin: 10/26/17 11:53 Dose: 0.1 mg Diltiazem HCl (Cardizem Cd 24hr) 180 mg PO DAILY [facility] Last Admin: 10/27/17 08:24 Dose: 180 mg Enalaprilat (Vasotec Inj) 1.25 mg IV.PUSH Q6H PRN PRN Reason: SYS BP GREATER THAN 160 [facility] Last Admin: 10/26/17 20:37 Dose: 1.25 mg Enoxaparin Sodium (Lovenox Inj) 40 mg SQ Q24H [facility] Last Admin: 10/27/17 04:31 Dose: 40 mg Fluticasone/Vilanterol (Breo Ellipta 100/25 Mcg Inh) 1 puff INH DAILY [facility] Last Admin: 10/27/17 08:25 Dose: 1 puff Hydrochlorothiazide (Hydrodiuril) 25 mg PO DAILY [facility] Last Admin: 10/27/17 08:25 Dose: 25 mg Lactulose (Lactulose Liq) 30 ml PO DAILY PRN PRN Reason: SEVERE CONSITIPATION Levofloxacin (Levaquin) 750 mg PO DAILY [facility] Last Admin: 10/27/17 08:25 Dose: 750 mg Levothyroxine Sodium (Synthroid) 75 mcg PO DAILY@0600 [facility] Last Admin: 10/27/17 06:48 Dose: 75 mcg Methylprednisolone Sodium Succinate (Solumedrol Inj) 60 mg IV.PUSH Q6H [facility] Last Admin: 10/27/17 11:49 Dose: 60 mg Montelukast Sodium (Singulair) 10 mg PO QPM [facility] Last Admin: 10/26/17 17:30 Dose: 10 mg Ondansetron HCl (Zofran Inj) 4 mg IV.PUSH Q6H PRN PRN Reason: NAUSEA OR VOMITING Senna/Docusate Sodium (Pamela-Colace) 1 tab PO BID [facility] Last Admin: 10/27/17 08:25 Dose: 1 tab Sennosides (Senokot) 17.2 mg PO Q12H PRN PRN Reason: Moderate Constipation Sodium Chloride (Ns Flush) 2 ml IV.FLUSH PRN PRN PRN Reason: FLUSH AFTER USING IV ACCESS Sodium Chloride (Ns Flush) 2 ml IV.FLUSH BID [facility] Last Admin: 10/27/17 08:25 Dose: 2 ml Exam Vital signs: Vital Signs 10/26/17 12:00 10/26/17 13:00 10/26/17 13:01 Temperature Pulse Rate 68 65 66 Respiratory Rate 24 Blood Pressure 183/74 H 152/66 H Pulse Oximetry 93 L 95 94 L 10/26/17 14:00 10/26/17 14:01 10/26/17 15:00 Temperature Pulse Rate 57 L 59 L 67 Respiratory Rate 24 23 24 Blood Pressure 131/62 139/64 Pulse Oximetry 93 L 95 94 L 10/26/17 15:48 10/26/17 15:49 10/26/17 16:00 Temperature 97.8 F Pulse Rate 64 62 Respiratory Rate 22 24 Blood Pressure 135/64 Pulse Oximetry 93 L 10/26/17 16:16 10/26/17 16:27 10/26/17 17:00 Temperature Pulse Rate 72 70 74 Respiratory Rate 27 H Blood Pressure Pulse Oximetry 93 L 10/26/17 17:01 10/26/17 17:46 10/26/17 18:00 Temperature Pulse Rate 75 70 71 Respiratory Rate Blood Pressure 157/71 H 148/65 H Pulse Oximetry 95 97 10/26/17 19:00 10/26/17 20:00 10/26/17 20:01 Temperature 98.1 F Pulse Rate 72 65 64 Respiratory Rate 27 H 24 26 H Blood Pressure 165/68 H 168/71 H 168/71 H Pulse Oximetry 95 95 95 10/26/17 20:15 10/26/17 20:33 10/26/17 21:00 Temperature Pulse Rate 83 82 73 Respiratory Rate 18 27 H 23 Blood Pressure 188/79 H 167/70 H Pulse Oximetry 98 96 10/26/17 21:31 10/26/17 22:00 10/26/17 22:01 Temperature Pulse Rate 90 68 73 Respiratory Rate 30 H 24 30 H Blood Pressure 170/73 H 159/65 H Pulse Oximetry 98 97 95 10/26/17 22:30 10/26/17 23:00 10/26/17 23:30 Temperature Pulse Rate 77 77 72 Respiratory Rate 28 H 25 H 27 H Blood Pressure 163/70 H 170/72 H 163/65 H Pulse Oximetry 96 96 96 10/26/17 23:33 10/27/17 00:00 10/27/17 00:30 Temperature 97.9 F Pulse Rate 76 75 78 Respiratory Rate 17 26 H 25 H Blood Pressure 158/67 H 177/73 H Pulse Oximetry 96 100 10/27/17 00:33 10/27/17 01:00 10/27/17 01:30 Temperature Pulse Rate 83 79 79 Respiratory Rate 22 25 H 24 Blood Pressure 162/74 H 147/64 H 142/66 H Pulse Oximetry 97 96 96 10/27/17 02:00 10/27/17 02:01 10/27/17 02:30 Temperature Pulse Rate 73 81 76 Respiratory Rate 21 24 29 H Blood Pressure 165/75 H 173/74 H Pulse Oximetry 97 98 99 10/27/17 03:00 10/27/17 03:01 10/27/17 03:30 Temperature Pulse Rate 63 62 59 L Respiratory Rate 20 21 18 Blood Pressure 138/62 136/65 Pulse Oximetry 99 99 98 10/27/17 03:50 10/27/17 04:00 10/27/17 04:30 Temperature 98 F Pulse Rate 78 63 66 Respiratory Rate 17 20 24 Blood Pressure 150/65 H 162/67 H Pulse Oximetry 100 98 10/27/17 05:00 10/27/17 05:01 10/27/17 05:30 Temperature Pulse Rate 63 61 60 Respiratory Rate 19 20 18 Blood Pressure 132/60 120/58 L Pulse Oximetry 100 99 98 10/27/17 06:00 10/27/17 06:30 10/27/17 07:00 Temperature Pulse Rate 57 L 57 L 67 Respiratory Rate 18 17 19 Blood Pressure 129/58 L 135/61 148/67 H Pulse Oximetry 100 100 99 10/27/17 07:30 10/27/17 08:00 10/27/17 08:26 Temperature 97.7 F Pulse Rate 74 62 Respiratory Rate 20 18 Blood Pressure 154/68 H 133/62 Pulse Oximetry 98 99 95 10/27/17 08:29 10/27/17 08:30 10/27/17 08:31 Temperature Pulse Rate 78 96 H Respiratory Rate 20 Blood Pressure 177/74 H Pulse Oximetry 98 98 10/27/17 09:00 10/27/17 09:01 10/27/17 09:30 Temperature Pulse Rate 72 72 75 Respiratory Rate 20 22 22 Blood Pressure 105/50 L Pulse Oximetry 96 96 96 10/27/17 09:31 10/27/17 10:00 Temperature Pulse Rate 74 79 Respiratory Rate 22 Blood Pressure 126/55 L Pulse Oximetry 96 98 Intake & Output 10/26/17 10/27/17 10/27/17 18:59 06:59 18:59 Intake Total 720 / 720 Balance 720 / 720 Weight 53 kg Intake: Oral 720 / 720 Other: # Voids 1 2 Results - Labs CBC & Chem 7: 10/25/17 23:25 10/27/17 07:33 Labs: Laboratory Results - last 24 hr 10/26/17 10/27/17 20:33 07:33 Sodium 140 Potassium 3.5 Chloride 105 Carbon Dioxide 27.2 Anion Gap 8 BUN 22 H Creatinine 0.68 Estimated GFR 86 L Random Glucose 183 H Calcium 8.4 L Troponin I Less than 0.02 L Less than 0.02 L Caprini VTE Risk Assessment Caprini Risk Assessment Model: Point Value = 1 Point Value = 2 Point Value = 3 Point Value = 5 Age 41-60 Minor surgery BMI > 25 kg/m2 Swollen legs Varicose veins or History of unexplained or recurrent spontaneous Oral contraceptives or hormone replacement Sepsis (< 1 month) Serious lung disease, including pneumonia (< 1 month) Abnormal pulmonary function Acute myocardial infarction Congestive heart failure (< 1 month) History of inflammatory bowel disease Medical patient at bed rest Age 61-74 Arthroscopic surgery Major open surgery (> 45 min) Laparoscopic surgery (> 45 min) Malignancy Confined to bed (> 72 hours) Immobilizing plaster cast Central venous access Age >= 75 History of VTE Family history of VTE Factor V Leiden Prothrombin [id number] Lupus anticoagulant Anticardiolipin antibodies Elevated serum homocysteine Heparin-induced thrombocytopenia Other congenital or acquired thrombophilia Stroke (< 1 month) Elective arthroplasty Hip, pelvis, or leg fracture Acute spinal cord injury (< 1 month) Prophylaxis Regimen: Total Risk Factor Score Risk Level Prophylaxis Regimen 0-1 Low Early ambulation 2 Moderate Order ONE of the following: *Sequential Compression Device (SCD) *Heparin 5000 units SQ BID 3-4 Higher Order ONE of the following medications: *Heparin 5000 units SQ TID *Enoxaparin/Lovenox 40 mg SQ daily (WT < 150 kg, CrCl > 30 mL/min) *Enoxaparin/Lovenox 30 mg SQ daily (WT < 150 kg, CrCl > 10-29 mL/min) *Enoxaparin/Lovenox 30 mg SQ BID (WT < 150 kg, CrCl > 30 mL/min) AND/OR *Sequential Compression Device (SCD) 5 or more Highest Order ONE of the following medications: *Heparin 5000 units SQ TID (Preferred with Epidurals) *Enoxaparin/Lovenox 40 mg SQ daily (WT < 150 kg, CrCl > 30 mL/min) *Enoxaparin/Lovenox 30 mg SQ daily (WT < 150 kg, CrCl > 10-29 mL/min) *Enoxaparin/Lovenox 30 mg SQ BID (WT < 150 kg, CrCl > 30 mL/min) AND *Sequential Compression Device (SCD) Assessment and Plan - Assessment (1) Acute respiratory failure with hypoxemia Code(s): J96.01 - Acute respiratory failure with hypoxia Status: Acute (2) Exacerbation of reactive airway disease Code(s): J45.901 - Unspecified asthma with (acute) exacerbation Status: Acute - Attending Attestation Patient examined. Assessment and plan formulated with Pamela Martin PA-C. I agree with the above. on lung auscultation, pt had poor air movement with marked wheezing in both lung brunner. - continue IV steroids - increase duonebs to q4h - continue breo ellipta - abnormal EKG - NO clinical complaints of chest pain - will obtain serial Dustin and serial EKGs. <Pamela Martin - Last Filed: 10/26/17 17:41> (2) Exacerbation of reactive airway disease Qualifiers: Asthma severity: severe Asthma persistence: persistent Qualified Code(s): J45.51 - Severe persistent asthma with (acute) exacerbation <Slim Simms - Last Filed: 10/27/17 11:56> (2) Exacerbation of reactive airway disease Qualifiers: Asthma severity: severe Asthma persistence: persistent Qualified Code(s): J45.51 - Severe persistent asthma with (acute) exacerbation
[2017-10-26] MEDS ORDERED: Levothyroxine 75 MCG Tablet PO SCH (10:00)
[2017-10-26] MEDS: hydroCHLOROthiazide 25 MG Tablet PO SCH (10:02)
[2017-10-26] MEDS: Montelukast 10 MG Tablet PO SCH (17:30)
--- NOTE | 2017-10-26 21:23 | ECG ---
Date Performed: 10/25/2017 Time Performed: 23:12:41 PTAGE: 67 years EKG: Sinus rhythm NONSPECIFIC ST & T-WAVE ABNORMALITY BORDERLINE ECG NO PREVIOUS TRACING DOCTOR: Carson Blake Interpretating Date/Time 10/26/2017 21:21:57
[2017-10-27] MEDS: MethylPREDNISolone Sod Succinate Inj 125 MG/2 ML Vial IV.PUSH SCH ×4 (00:19→17:32)
[2017-10-27] MEDS ORDERED: Chlorhexidine Gluconate 2% 1 Pack (2 Cloths) TOPICAL PRN (04:00)
[2017-10-27] MEDS: Enoxaparin Inj 40 MG/0.4 ML Syringe SQ SCH (04:31)
[2017-10-27] MEDS: Chlorhexidine Gluconate 2% 1 Pack (2 Cloths) TOPICAL SCH (04:32)
[2017-10-27] MEDS: Levothyroxine 75 MCG Tablet PO SCH (06:48)
--- NOTE | 2017-10-27 07:30 | MB ---
cc: Hansel Hamm MD DATE: 10/26/2017 REASONS FOR CONSULTATION: Respiratory failure and history of bronchial asthma and/or airway hyperreactivity. HISTORY OF PRESENT ILLNESS: Mrs. Luna is a 67-year-old female who has had a history of repeated bronchospasm and was told she had hyperreactive airways. The patient was given Breo, which she uses on an as-needed basis. She has history of diabetes mellitus, hypothyroidism, hyperlipidemia, and hypertension. She presented to the emergency room with increasing shortness of breath and significant hypoxemia, oxygen saturation on room air at 74%. The patient was placed on oxygen therapy, bronchodilator therapy, and admitted to the intensive care unit. She is feeling somewhat better at this time, has a cough. She believes she has mucus; however, she states she has never seen the sputum. Her chest x-ray was negative. PAST MEDICAL HISTORY: Diabetes mellitus, hypertension, hypothyroidism, hyperlipidemia, bronchial asthma, osteoporosis. PAST SURGICAL HISTORY: No previous surgeries. SOCIAL HISTORY: Does not smoke, does not drink, never smoked, and does not use drugs. FAMILY HISTORY: Noncontributory. REVIEW OF SYSTEMS: A 12-point review of systems as per HPI and past history, otherwise negative. PHYSICAL EXAMINATION: GENERAL: The patient is alert. VITAL SIGNS: Temperature 98, pulse 70, respirations 18, blood pressure 134/70, oxygen saturation 95% on oxygen via nasal cannula. HEENT: Unremarkable. Eyes without icterus. NECK: Without adenopathy or thyroid enlargement. Central trachea. CHEST: Few scattered rhonchi and wheezes bilaterally. CARDIAC: PMI not appreciated. S1, S2 audible. No murmur. No rub. ABDOMEN: Lax, audible bowel sounds. EXTREMITIES: No clubbing, cyanosis, or edema. SKIN: Normal. No lymphadenopathy. LABORATORY DATA: Chest x-ray, no acute infiltrate. White count 11,000, hemoglobin 14, hematocrit 42, platelets 247,000. INR 1.1. ABG: pH 7.38, pCO2 of 43, pO2 of 69 on 40% inspired oxygen fraction. Sodium 140, potassium 3.8, BUN 14, creatinine 0.9. IMPRESSION: 1. Asthma exacerbation. 2. Diabetes mellitus. 3. Hypertension. 4. Hyperlipidemia. PLAN: The patient will be maintained on bronchodilator therapy. Short course of intravenous steroid therapy would be appropriate and watching her blood sugars closely. Empiric antibiotic therapy would be appropriate. We will follow her course along with you. When able, we will check a pulmonary function and proceed with further workup as needed. Thank you for asking me to participate in Ms. Luna's care. Hansel Hamm MD WWW/mannie , 04:59 PM , 05:07 PM
[2017-10-27] MEDS: dilTIAZem CD 180 MG Capsule PO SCH (08:24)
[2017-10-27 08:25] LABS: Anion Gap 8 meq/L (5-15); Blood Urea Nitrogen 22 mg/dL (7-18); Calcium 8.4 mg/dL (8.5-10.1); Carbon Dioxide 27.2 meq/L (21.0-32.0); Chloride 105 meq/L (98-107); Glomerular Filtration Rate 86 mL/min (>89); Glucose,Random 183 mg/dL (74-106); Potassium 3.5 meq/L (3.5-5.1); Sodium 140 meq/L (136-145)
[2017-10-27] MEDS: Senna/Docusate Sodium 8.6/50 MG Tablet PO SCH ×2 (08:25→22:42)
[2017-10-27] MEDS: levoFLOXacin 750 MG Tablet PO SCH (08:25)
[2017-10-27] MEDS: Celecoxib 200 MG Capsule PO SCH (08:25)
[2017-10-27] MEDS: hydroCHLOROthiazide 25 MG Tablet PO SCH (08:25)
--- NOTE | 2017-10-27 11:52 | ECG ---
Date Performed: 10/26/2017 Time Performed: 16:23:08 PTAGE: 67 years EKG: Sinus rhythm . Extensive ST-T changes may be due to myocardial ischemia cannot exclude ischemia Abnormal ECG PREVIOUS TRACING : 10/25/[address]-T changes similar to the prior tracing DOCTOR: Raj Ghotra Interpretating Date/Time 10/27/2017 11:51:16
--- NOTE | 2017-10-27 11:54 | ECG ---
Date Performed: 10/27/2017 Time Performed: 04:36:38 PTAGE: 67 years EKG: Sinus rhythm . Extensive ST-T changes but similar to the prior tracing Cannot exclude ischemia Abnormal ECG PREVIOUS TRACING : 10/26/2017 22.00 DOCTOR: Raj Ghotra Interpretating Date/Time 10/27/2017 11:52:53
--- NOTE | 2017-10-27 11:54 | ECG ---
Date Performed: 10/26/2017 Time Performed: 22:00:03 PTAGE: 67 years EKG: Normal Sinus rhythm Extensive ST-T changes Cannot exclude Ischemia ABNORMAL ECG PREVIOUS TRACING : 10/26/[address]-T changes are similar to the prior tracing DOCTOR: Raj Ghotra Interpretating Date/Time 10/27/2017 11:52:19
--- NOTE | 2017-10-27 12:05 | P.PNIM ---
Subjective Interval history: Less SOB from admission. Physical Exam Vital signs: 10/27/17 09:01 10/27/17 09:30 10/27/17 09:31 Temperature Pulse Rate 72 75 74 Respiratory Rate 22 22 22 Blood Pressure 105/50 L 126/55 L Pulse Oximetry 96 96 96 Narrative: GENERAL: This is a well-nourished, well-developed patient, in no apparent distress. CARDIOVASCULAR: Regular rate and rhythm without murmurs, gallops, or rubs. RESPIRATORY: b/l wheezing GASTROINTESTINAL: Abdomen soft, non-tender, nondistended. Normal active bowel sounds MUSCULOSKELETAL: Extremities without clubbing, cyanosis, or edema. NEURO: Alert & Oriented x4 to person, place, time, situation. Moves all ext x4 Results - Labs CBC & Chem 7: 10/25/17 23:25 10/27/17 07:33 10/26/17 00:30 Blood - Peripheral Aerobic Blood Culture - Preliminary No growth in 1 day 10/26/17 00:30 Blood - Peripheral Anaerobic Blood Culture - Preliminary No growth in 1 day 10/26/17 00:30 Blood - Peripheral Aerobic Blood Culture - Preliminary No growth in 1 day 10/26/17 00:30 Blood - Peripheral Anaerobic Blood Culture - Preliminary No growth in 1 day - Imaging Chest X-Ray 10/25/17 23:29 CONCLUSION: No evidence of acute cardiopulmonary disease. Assessment and Plan - Assessment (1) Acute respiratory failure with hypoxemia Code(s): J96.01 - Acute respiratory failure with hypoxia Status: Acute Plan: This a 67-year-old female patient with a past medical history which includes diabetes mellitus type 2, hypothyroidism, hyperlipidemia, benign hypertension, asthma, seasonal allergies and postmenopausal osteoporosis. Patient presented to the ER last night due to congestion, cough, subjective fever that began . Patient reports that she began to have symptoms of shortness of breath that gradually worsened throughout the evening. Acute respiratory failure with hypoxia Exacerbation of reactive airway disease Per ER documentation the patient was tachypneic with an O2 saturation of 74% on room air when she arrived to the ER last night. The patient was initially placed on a nonrebreather mask and then switched over to BiPAP. Chest X-Ray 10/25/17 23:29 reviewed and reveals No evidence of acute cardiopulmonary disease. D-dimer 0.47 Duo nebs every 4 hours and as needed Patient given Solu-Medrol 125 mg IV emergency department then started on Solu- Medrol 60 mg IV every 6 hours Patient started on azithromycin and Rocephin IV in the emergency department Patient switched to Levaquin 750 mg p.o. daily we will continue Continue patient's home montelukast 10 mg p.o. every afternoon Continue patient's home Brio Ellipta 1 puff daily Consult placed to pulmonology - continue current dosing of solumedrol, duonebs, singulair, levaquin, and brio ellipta - anticipate discharge in 2-3 days Diabetes mellitus type 2 Patient takes Synjardy at home will hold hold at this time Diabetic diet Accu-Cheks AC at bedtime with sliding scale insulin coverage Hypothyroidism Continue patient's home levothyroxine 75 mcg daily Benign hypertension Continue patient's home hydrochlorothiazide 25 mg p.o. daily and diltiazem Hyperlipidemia Continue patient's home atorvastatin 10 mg p.o. daily ABN EKG - st changes when compared to EKG from 03/2017 - NO clinical c/o chest pain - serial EKGs no new changes - serial Dustin --> negative DVT prophylaxis with Lovenox (2) Exacerbation of reactive airway disease Code(s): J45.901 - Unspecified asthma with (acute) exacerbation Status: Acute (2) Exacerbation of reactive airway disease Qualifiers: Asthma severity: severe Asthma persistence: persistent Qualified Code(s): J45.51 - Severe persistent asthma with (acute) exacerbation
--- NOTE | 2017-10-27 17:02 | P.PN ---
Subjective Interval history: alert less sob now on med floor Physical Exam Vital signs: Vital Signs 10/26/17 17:01 10/26/17 17:46 10/26/17 18:00 Temperature Pulse Rate 75 70 71 Respiratory Rate Blood Pressure 157/71 H 148/65 H Pulse Oximetry 95 97 10/26/17 19:00 10/26/17 20:00 10/26/17 20:01 Temperature 98.1 F Pulse Rate 72 65 64 Respiratory Rate 27 H 24 26 H Blood Pressure 165/68 H 168/71 H 168/71 H Pulse Oximetry 95 95 95 10/26/17 20:15 10/26/17 20:33 10/26/17 21:00 Temperature Pulse Rate 83 82 73 Respiratory Rate 18 27 H 23 Blood Pressure 188/79 H 167/70 H Pulse Oximetry 98 96 10/26/17 21:31 10/26/17 22:00 10/26/17 22:01 Temperature Pulse Rate 90 68 73 Respiratory Rate 30 H 24 30 H Blood Pressure 170/73 H 159/65 H Pulse Oximetry 98 97 95 10/26/17 22:30 10/26/17 23:00 10/26/17 23:30 Temperature Pulse Rate 77 77 72 Respiratory Rate 28 H 25 H 27 H Blood Pressure 163/70 H 170/72 H 163/65 H Pulse Oximetry 96 96 96 10/26/17 23:33 10/27/17 00:00 10/27/17 00:30 Temperature 97.9 F Pulse Rate 76 75 78 Respiratory Rate 17 26 H 25 H Blood Pressure 158/67 H 177/73 H Pulse Oximetry 96 100 10/27/17 00:33 10/27/17 01:00 10/27/17 01:30 Temperature Pulse Rate 83 79 79 Respiratory Rate 22 25 H 24 Blood Pressure 162/74 H 147/64 H 142/66 H Pulse Oximetry 97 96 96 10/27/17 02:00 10/27/17 02:01 10/27/17 02:30 Temperature Pulse Rate 73 81 76 Respiratory Rate 21 24 29 H Blood Pressure 165/75 H 173/74 H Pulse Oximetry 97 98 99 10/27/17 03:00 10/27/17 03:01 10/27/17 03:30 Temperature Pulse Rate 63 62 59 L Respiratory Rate 20 21 18 Blood Pressure 138/62 136/65 Pulse Oximetry 99 99 98 10/27/17 03:50 10/27/17 04:00 10/27/17 04:30 Temperature 98 F Pulse Rate 78 63 66 Respiratory Rate 17 20 24 Blood Pressure 150/65 H 162/67 H Pulse Oximetry 100 98 10/27/17 05:00 10/27/17 05:01 10/27/17 05:30 Temperature Pulse Rate 63 61 60 Respiratory Rate 19 20 18 Blood Pressure 132/60 120/58 L Pulse Oximetry 100 99 98 10/27/17 06:00 10/27/17 06:30 10/27/17 07:00 Temperature Pulse Rate 57 L 57 L 67 Respiratory Rate 18 17 19 Blood Pressure 129/58 L 135/61 148/67 H Pulse Oximetry 100 100 99 10/27/17 07:30 10/27/17 08:00 10/27/17 08:26 Temperature 97.7 F Pulse Rate 74 62 Respiratory Rate 20 18 Blood Pressure 154/68 H 133/62 Pulse Oximetry 98 99 95 10/27/17 08:29 10/27/17 08:30 10/27/17 08:31 Temperature Pulse Rate 78 96 H Respiratory Rate 20 Blood Pressure 177/74 H Pulse Oximetry 98 98 10/27/17 09:00 10/27/17 09:01 10/27/17 09:30 Temperature Pulse Rate 72 72 75 Respiratory Rate 20 22 22 Blood Pressure 105/50 L Pulse Oximetry 96 96 96 10/27/17 09:31 10/27/17 10:00 10/27/17 10:11 Temperature Pulse Rate 74 78 78 Respiratory Rate 22 24 Blood Pressure 126/55 L 165/67 H Pulse Oximetry 96 98 97 10/27/17 10:30 10/27/17 11:00 10/27/17 11:30 Temperature Pulse Rate 73 78 78 Respiratory Rate 22 23 Blood Pressure 167/66 H 174/71 H 167/69 H Pulse Oximetry 98 99 98 10/27/17 11:59 10/27/17 12:00 10/27/17 12:31 Temperature 98.3 F Pulse Rate 72 69 69 Respiratory Rate 20 23 22 Blood Pressure 157/69 H 151/67 H Pulse Oximetry 100 96 10/27/17 13:00 10/27/17 13:01 10/27/17 13:30 Temperature Pulse Rate 97 H 84 65 Respiratory Rate 22 Blood Pressure 157/71 H 131/60 Pulse Oximetry 95 96 96 10/27/17 13:51 10/27/17 15:00 10/27/17 15:49 Temperature 98.2 F Pulse Rate 64 69 76 Respiratory Rate 20 18 Blood Pressure 180/78 H Pulse Oximetry 98 10/27/17 15:50 Temperature Pulse Rate Respiratory Rate Blood Pressure Pulse Oximetry 98 Intake & Output 10/26/17 10/27/17 10/27/17 18:59 06:59 18:59 Intake Total 720 / 720 Balance 720 / 720 Weight 53 kg Intake: Oral 720 / 720 Other: # Voids 1 2 Narrative: GENERAL: This is a well-nourished, well-developed patient, in no apparent distress. CARDIOVASCULAR: Regular rate and rhythm without murmurs, gallops, or rubs. RESPIRATORY: b/l wheezing GASTROINTESTINAL: Abdomen soft, non-tender, nondistended. Normal active bowel sounds MUSCULOSKELETAL: Extremities without clubbing, cyanosis, or edema. NEURO: Alert & Oriented x4 to person, place, time, situation. Moves all ext x4 Results - Labs CBC & Chem 7: 10/25/17 23:25 10/27/17 07:33 Laboratory Results - last 24 hr 10/26/17 10/27/17 20:33 07:33 Sodium 140 Potassium 3.5 Chloride 105 Carbon Dioxide 27.2 Anion Gap 8 BUN 22 H Creatinine 0.68 Estimated GFR 86 L Random Glucose 183 H Calcium 8.4 L Troponin I Less than 0.02 L Less than 0.02 L Microbiology 10/26/17 00:30 Blood - Peripheral Aerobic Blood Culture - Preliminary No growth in 1 day 10/26/17 00:30 Blood - Peripheral Anaerobic Blood Culture - Preliminary No growth in 1 day 10/26/17 00:30 Blood - Peripheral Aerobic Blood Culture - Preliminary No growth in 1 day 10/26/17 00:30 Blood - Peripheral Anaerobic Blood Culture - Preliminary No growth in 1 day Assessment and Plan - Plan asthma exacerbation dm htn HLD HYPOTHYROIDISM PLAN O2 NEEDED BRONCHODILATOR THERAPY INCREASE ACTIVITY
[2017-10-27] MEDS: Montelukast 10 MG Tablet PO SCH (17:48)
[2017-10-28] MEDS: MethylPREDNISolone Sod Succinate Inj 125 MG/2 ML Vial IV.PUSH SCH ×3 (00:29→20:33)
[2017-10-28] MEDS: Enoxaparin Inj 40 MG/0.4 ML Syringe SQ SCH (03:00)
[2017-10-28] MEDS: Chlorhexidine Gluconate 2% 1 Pack (2 Cloths) TOPICAL SCH (04:00)
[2017-10-28] MEDS: Levothyroxine 75 MCG Tablet PO SCH (06:52)
[2017-10-28] MEDS ORDERED: Dextrose 50% in Water 50 ML Vial IV.PUSH PRN (09:02)
[2017-10-28] MEDS: levoFLOXacin 750 MG Tablet PO SCH (09:05)
[2017-10-28] MEDS: dilTIAZem CD 180 MG Capsule PO SCH (09:05)
[2017-10-28] MEDS: Celecoxib 200 MG Capsule PO SCH (09:05)
[2017-10-28] MEDS: hydroCHLOROthiazide 25 MG Tablet PO SCH (09:05)
[2017-10-28] MEDS: Senna/Docusate Sodium 8.6/50 MG Tablet PO SCH ×2 (09:06→20:33)
--- NOTE | 2017-10-28 11:38 | P.PNIM ---
Subjective Interval history: Pt has NO new clinical complaints. Less SOB from admission. Physical Exam Vital signs: 10/28/17 08:00 10/28/17 08:32 10/28/17 09:45 Temperature 97.2 F L Pulse Rate 58 L 66 Respiratory Rate 16 Blood Pressure 158/70 H Pulse Oximetry 96 97 Narrative: GENERAL: This is a well-nourished, well-developed patient, in no apparent distress. CARDIOVASCULAR: Regular rate and rhythm without murmurs, gallops, or rubs. RESPIRATORY: rare scatted wheeze x b/l, much improved from admission GASTROINTESTINAL: Abdomen soft, non-tender, nondistended. Normal active bowel sounds MUSCULOSKELETAL: Extremities without clubbing, cyanosis, or edema. NEURO: Alert & Oriented x4 to person, place, time, situation. Moves all ext x4 Results - Labs CBC & Chem 7: 10/25/17 23:25 10/27/17 07:33 Laboratory Results - last 24 hr 10/27/17 10/28/17 17:01 00:50 POC Glucose 175 H Troponin I Less than 0.02 L Microbiology 10/26/17 00:30 Blood - Peripheral Aerobic Blood Culture - Preliminary No growth in 2 days 10/26/17 00:30 Blood - Peripheral Anaerobic Blood Culture - Preliminary No growth in 2 days 10/26/17 00:30 Blood - Peripheral Aerobic Blood Culture - Preliminary No growth in 2 days 10/26/17 00:30 Blood - Peripheral Anaerobic Blood Culture - Preliminary No growth in 2 days Assessment and Plan - Assessment (1) Acute respiratory failure with hypoxemia Code(s): J96.01 - Acute respiratory failure with hypoxia Status: Acute Plan: This a 67-year-old female patient with a past medical history which includes diabetes mellitus type 2, hypothyroidism, hyperlipidemia, benign hypertension, asthma, seasonal allergies and postmenopausal osteoporosis. Patient presented to the ER last night due to congestion, cough, subjective fever that began . Patient reports that she began to have symptoms of shortness of breath that gradually worsened throughout the evening. Acute respiratory failure with hypoxia Exacerbation of reactive airway disease Per ER documentation the patient was tachypneic with an O2 saturation of 74% on room air when she arrived to the ER last night. The patient was initially placed on a nonrebreather mask and then switched over to BiPAP. Chest X-Ray 08/28/18 23:29 reviewed and reveals No evidence of acute cardiopulmonary disease. D-dimer 0.47 Duo nebs every 4 hours and as needed Patient given Solu-Medrol 125 mg IV emergency department then started on Solu- Medrol 60 mg IV every 6 hours Patient started on azithromycin and Rocephin IV in the emergency department Patient switched to Levaquin 750 mg p.o. daily we will continue Continue patient's home montelukast 10 mg p.o. every afternoon Continue patient's home Brio Ellipta 1 puff daily - appreciate input from Pulmonary - decrease IV solumedrol to 60mg BID - decrease duonebs to q6h [place] - singulair, levaquin, and brio ellipta - anticipate discharge 10/30 Diabetes mellitus type 2 Patient takes Synjardy at home will hold hold at this time Diabetic diet Accu-Cheks AC at bedtime with sliding scale insulin coverage Hypothyroidism Continue patient's home levothyroxine 75 mcg daily Benign hypertension Continue patient's home hydrochlorothiazide 25 mg p.o. daily and diltiazem Hyperlipidemia Continue patient's home atorvastatin 10 mg p.o. daily ABN EKG - st changes when compared to EKG from 03/2017 - NO clinical c/o chest pain - serial EKGs no new changes - serial Dustin --> negative - consider mariana prior to discharge vs outpt DVT prophylaxis with Lovenox (2) Exacerbation of reactive airway disease Code(s): J45.901 - Unspecified asthma with (acute) exacerbation Status: Acute (2) Exacerbation of reactive airway disease Qualifiers: Asthma severity: severe Asthma persistence: persistent Qualified Code(s): J45.51 - Severe persistent asthma with (acute) exacerbation
[2017-10-28] MEDS: Insulin NovoLOG Aspart Correctional Sugar Inj SQ SCH ×3 (13:53→20:33)
[2017-10-28] MEDS: Montelukast 10 MG Tablet PO SCH (17:56)
[2017-10-29] MEDS: Enoxaparin Inj 40 MG/0.4 ML Syringe SQ SCH (03:48)
[2017-10-29] MEDS: Chlorhexidine Gluconate 2% 1 Pack (2 Cloths) TOPICAL SCH (05:10)
[2017-10-29] MEDS: Levothyroxine 75 MCG Tablet PO SCH (06:05)
[2017-10-29] MEDS: Insulin NovoLOG Aspart Correctional Sugar Inj SQ SCH ×2 (08:29→12:11)
[2017-10-29] MEDS: hydroCHLOROthiazide 25 MG Tablet PO SCH (08:32)
[2017-10-29] MEDS: levoFLOXacin 750 MG Tablet PO SCH (08:32)
[2017-10-29] MEDS: dilTIAZem CD 180 MG Capsule PO SCH (08:32)
[2017-10-29] MEDS: Celecoxib 200 MG Capsule PO SCH (08:32)
[2017-10-29] MEDS: Senna/Docusate Sodium 8.6/50 MG Tablet PO SCH (08:33)
[2017-10-29] MEDS: MethylPREDNISolone Sod Succinate Inj 125 MG/2 ML Vial IV.PUSH SCH (08:33)
--- NOTE | 2017-10-29 11:15 | P.DCO ---
- Diagnosis (1) Exacerbation of reactive airway disease - Physical Therapy Order: Evaluate and treat - Home Health Nursing Order: Medical education, Signs/symptoms of disease process, Medication education-adverse effect, Nursing assessment with vital signs - Certification I have seen patient Lily Luna on 10/29/17. My clinical findings support the need for the requested home health care services because: Deconditioned with increased weakness I certify that my clinical findings support that this patient is homebound because: Unsteady gait/balance (1) Exacerbation of reactive airway disease Qualifiers: Asthma severity: severe Asthma persistence: persistent Qualified Code(s): J45.51 - Severe persistent asthma with (acute) exacerbation
--- NOTE | 2017-10-29 14:36 | P.DS ---
Date of admission: 10/26/17 01:06 Primary care physician: Nidhi Cooper Attending physician on discharge: Slim Simms Anticipated date of discharge: 10/29/17 Brief History from admission: This a 67-year-old female patient with a past medical history which includes diabetes mellitus type 2, hypothyroidism, hyperlipidemia, benign hypertension, asthma, seasonal allergies and postmenopausal osteoporosis. Patient presented to the ER last night due to congestion, cough, subjective fever that began . Patient reports that she began to have symptoms of shortness of breath that gradually worsened throughout the evening. The patient's daughter reports that yesterday she started back on Brio and albuterol as nebulizer treatments. She reports that she has been given this in the past when she had an upper respiratory infection. She last used these medicines 4-5 months ago. Patient lives with her son daughter- in -law and two grandchildren. Patient's grandson recently has an URI. Per ER documentation the patient was tachypneic with an O2 saturation of 74% on room air when she arrived to the ER last night. The patient was initially placed on a nonrebreather mask and then switched over to BiPAP. Patient denies having any chest pain, nausea, vomiting, diarrhea, constipation or chills. Patient also did denies recent travel, prolonged sedentary periods or lower extremity edema. Chest X-Ray 10/25/17 23:29 reviewed and reveals No evidence of acute cardiopulmonary disease. Past medical history Diabetes mellitus type 2 Hypothyroidism Benign hypertension Hyperlipidemia Asthma Seasonal allergies Postmenopausal osteoporosis Past surgical history Patient denies prior surgical intervention. Social history Patient denies EtOH use tobacco use or illicit drug use Family medical history reviewed and noncontributory DS: Diagnosis - Discharge Diagnosis (1) Exacerbation of reactive airway disease Status: Acute DS: Medications - Discharge Medications Prescriptions: ipratropium-albuterol 3 ml INHALATION QID #60 amp prednisone See Taper PO DIRECTED #18 tab DS: Summary Hospital Course: (1) Acute respiratory failure with hypoxemia Code(s): J96.01 - Acute respiratory failure with hypoxia Status: Acute Plan: This a 67-year-old female patient with a past medical history which includes diabetes mellitus type 2, hypothyroidism, hyperlipidemia, benign hypertension, asthma, seasonal allergies and postmenopausal osteoporosis. Patient presented to the ER last night due to congestion, cough, subjective fever that began . Patient reports that she began to have symptoms of shortness of breath that gradually worsened throughout the evening. Acute respiratory failure with hypoxia Exacerbation of reactive airway disease Per ER documentation the patient was tachypneic with an O2 saturation of 74% on room air when she arrived to the ER last night. The patient was initially placed on a nonrebreather mask and then switched over to BiPAP. Chest X-Ray 10/25/17 23:29 reviewed and reveals No evidence of acute cardiopulmonary disease. D-dimer 0.47 Duo nebs every 4 hours and as needed Patient given Solu-Medrol 125 mg IV emergency department then started on Solu- Medrol 60 mg IV every 6 hours Patient started on azithromycin and Rocephin IV in the emergency department Patient switched to Levaquin 750 mg p.o. daily we will continue Continue patient's home montelukast 10 mg p.o. every afternoon Continue patient's home Brio Ellipta 1 puff daily - appreciate input from Pulmonary - pt reexamined 10/29/17 & with marked clinical improvement. Pt requesting discharge - Prednisone 40mg with taper - duoneb q6h x 4 days, and then prn - levaquin completed - continuie singular & brio ellipta - f/u with PCP, Dr. Cooper, in 1 week - f/u with Pulmonary Medicine, Dr. Neff in 1-2 week - see discharge orders - Case Mgmt to arrange home nebulizer Diabetes mellitus type 2 - resume home medications upon discharge Hypothyroidism - levothyroxine 75 mcg daily Benign hypertension - hydrochlorothiazide 25 mg p.o. daily and diltiazem Hyperlipidemia Continue patient's home atorvastatin 10 mg p.o. daily ABN EKG - st changes when compared to EKG from 03/2017 - NO clinical c/o chest pain - serial EKGs no new changes - serial Dustin --> negative - Case d/w Dr. Mccoy, CP Cardiology. Sofía scan prior to discharge or outpt recommened. - Pt elects for outpt w/u - f/u with Dr. Mccoy for outpt lexiscan in 2-3 weeks (2) Exacerbation of reactive airway disease Code(s): J45.901 - Unspecified asthma with (acute) exacerbation Status: Acute - Time Spent with Patient Total time spent providing and/or coordinating discharge services: Greater than 30 minutes - Quality: VTE Deep Vein Thrombosis/Pulmonary Embolism Present on Admission: No Exam Vital signs: 10/29/17 08:00 10/29/17 08:46 10/29/17 12:00 Temperature 97.8 F 97.6 F Pulse Rate 56 L 56 L 69 Respiratory Rate 20 20 20 Blood Pressure 162/66 H 152/74 H Pulse Oximetry 94 L 94 L 96 Narrative: GENERAL: This is a well-nourished, well-developed patient, in no apparent distress. CARDIOVASCULAR: Regular rate and rhythm without murmurs, gallops, or rubs. RESPIRATORY: much improved from admission. mild b/l end-expiratory wheeze. Good air movement x b/l GASTROINTESTINAL: Abdomen soft, non-tender, nondistended. Normal active bowel sounds MUSCULOSKELETAL: Extremities without clubbing, cyanosis, or edema. NEURO: Alert & Oriented x4 to person, place, time, situation. Moves all ext x4 Results Procedures completed during hospitalization: n/a Labs on day of discharge: Labs from last 24 hours 10/29/17 10/29/17 10/28/17 12:10 08:28 20:28 POC Glucose 277 H 183 H 214 H 10/28/17 17:04 POC Glucose 303 H Preliminary micro results at discharge 10/26/17 00:30 Aerobic Blood Culture - Preliminary Blood - Peripheral No growth in 3 days Anaerobic Blood Culture - Preliminary No growth in 3 days 10/26/17 00:30 Aerobic Blood Culture - Preliminary Blood - Peripheral No growth in 3 days Anaerobic Blood Culture - Preliminary No growth in 3 days - Impressions Chest X-Ray 10/25/17 23:29 CONCLUSION: No evidence of acute cardiopulmonary disease. Discharge Plan - Discharge Disposition Patient Disposition: W/Home Health Service - Discharge Condition Condition: Stable - Discharge Order Discharge Orders: Discharge Order (Routine); Ordered 10/29/17 Ordered By: Pamela Martin - Physicians Team Primary Care Provider: Nidhi Cooper Attending Provider: Slim Simms Other Providers: Hansel Hamm MD ; [facility]
== END 2017-10-29 15:10 | disposition home health service (06) ==
LOC: NEPC 23:05 → NEDA 10-26 01:06 → HIMC 10-26 04:00 → H7ONC 10-27 15:15 → N06 10-28 17:00
PROVIDERS: ADMIT Hospitalist; ATTEND Hospitalist